=== PATIENT | male | born 1940 | race Two or more races ===

== ENCOUNTER 2016-09-07 09:04 | Emergency (ER) | payer OTHER ==
[~2016-09-07] VITALS: Ht 170.2 cm; Wt 88.5 kg
[2016-09-07 09:22] LABS: BASOPHILS % (AUTO) 0.3 % (0.0-2.0); DIFF TOTAL % 100 %; EOSINOPHILS % (AUTO) 0.1 % (0.0-6.0); HEMATOCRIT 31 % (39-51); HEMOGLOBIN 10.4 g/dL (13.5-17.5); LYMPHOCYTES # (AUTO) 1.8 /CMM (0.8-4.8); LYMPHOCYTES % (AUTO) 15.9 % (20.0-44.0); MEAN CORPUSCULAR HEMOGLOBIN 31 PG (26.0-33.0); MEAN CORPUSCULAR HGB CONC 34 g/dl (31.0-36.0); MEAN CORPUSCULAR VOLUME 93 fL (80-96); MONOCYTES % (AUTO) 9.1 % (2.0-12.0); NEUTROPHILS # (AUTO) 8.3 /CMM (1.8-8.9); NEUTROPHILS % (AUTO) 74.6 % (43.0-81.0); PLATELET COUNT (AUTO) 229 /CMM (150-450); RED BLOOD CELL COUNT(AUTO) 3.34 MIL/uL (4.5-6.0); WHITE BLOOD COUNT (AUTO) 11.2 K/uL (4.3-11.0)
[2016-09-07 09:37] LABS: ALANINE AMINOTRANSFERASE 14 U/L (12-78); ALBUMIN 2.6 g/dL (3.4-5.0); ANION GAP 18 (5-14); ASPARTATE AMINOTRANSFERASE 22 U/L (15-37); BILIRUBIN,DIRECT 0.2 mg/dL (0.0-0.2); BILIRUBIN,TOTAL 0.7 mg/dL (0.2-1.0); CALCIUM, SERUM 8.7 mg/dL (8.5-10.1); CARBON DIOXIDE 19 mmol/L (21-32); CHLORIDE 104 mmol/L (98-107); GLUCOSE 107 mg/dL (74-106); INDIRECT BILIRUBIN 0.5 mg/dL (0.0-1.1); POTASSIUM 4.9 mmol/L (3.5-5.1); SODIUM SERUM 136 mmol/L (136-145); TOTAL PROTEIN, SERUM 6.7 g/dL (6.4-8.2); UREA NITROGEN, BLOOD 71 mg/dL (7-18)
[2016-09-07 09:39] LABS: TROPONIN I < 0.017 ng/mL (0.00-0.056)
[2016-09-07 10:10] LABS: INR 1.04 (0.87-1.13); PROTHROMBIN TIME 11.2 SECS (9.5-12.7)
[2016-09-07] MEDS ORDERED: MORPHINE SULFATE INJ 4 MG/ML DISP.SYRIN ONE ×2 (11:07→15:42)
[2016-09-07] MEDS ORDERED: ONDANSETRON HCL/PF 4 MG/2 ML VIAL ONE ×2 (11:08→15:42)
[2016-09-07] MEDS ORDERED: ONDANSETRON HCL/PF - ER 4 MG/2 ML VIAL IV ONE (11:30)
[2016-09-07] MEDS ORDERED: MORPHINE SULFATE INJ 2 MG/ML DISP.SYRIN IV ONE ×2 (11:30→16:00)
[2016-09-07] MEDS ORDERED: HEPARIN INFUSION/D5W 500 ML IV ONE (14:00)
[2016-09-07] MEDS ORDERED: HEPARIN SODIUM, PORCINE 5000 UNITS/1 ML VIAL IV ONE (14:00)
[2016-09-07 14:07] LABS: BASOPHILS # (AUTO) 0.1 /CMM (0.0-0.2); BASOPHILS % (AUTO) 1.1 % (0.0-2.0); DIFF TOTAL % 100 %; EOSINOPHILS % (AUTO) 0.2 % (0.0-6.0); HEMATOCRIT 32 % (39-51); HEMOGLOBIN 10.8 g/dL (13.5-17.5); LYMPHOCYTES % (AUTO) 16.6 % (20.0-44.0); MEAN CORPUSCULAR HEMOGLOBIN 32 PG (26.0-33.0); MEAN CORPUSCULAR HGB CONC 34 g/dl (31.0-36.0); MEAN CORPUSCULAR VOLUME 93 fL (80-96); MONOCYTES % (AUTO) 8.2 % (2.0-12.0); NEUTROPHILS % (AUTO) 73.9 % (43.0-81.0); PLATELET COUNT (AUTO) 237 /CMM (150-450); RED BLOOD CELL COUNT(AUTO) 3.45 MIL/uL (4.5-6.0); WHITE BLOOD COUNT (AUTO) 12.1 K/uL (4.3-11.0)
[2016-09-07] MEDS ORDERED: IV SET PRIMARY PUMP SET 1 EA INFUS.SET MC ONE (14:14)
[2016-09-07 14:17] LABS: ANION GAP 13 (5-14); CALCIUM, SERUM 8.8 mg/dL (8.5-10.1); CARBON DIOXIDE 22 mmol/L (21-32); CHLORIDE 104 mmol/L (98-107); CREATININE 2.8 mg/dL (0.6-1.3); GLUCOSE 105 mg/dL (74-106); POTASSIUM 4.9 mmol/L (3.5-5.1); SODIUM SERUM 134 mmol/L (136-145); UREA NITROGEN, BLOOD 72 mg/dL (7-18)
[2016-09-07 14:26] LABS: TROPONIN I < 0.017 ng/mL (0.00-0.056)
[2016-09-07 15:07] VITALS: BP 128/66
[2016-09-07] MEDS ORDERED: SECONDARY IV SET 1 EA INFUS.SET MC ONE (15:30)
[2016-09-07] MEDS ORDERED: ONDANSETRON HCL/PF 4 MG/2 ML VIAL IVP ONE (16:00)
== END 2016-09-07 15:51 | disposition short-term general hospital (02) ==
LOC: ER 09:06
DX: I26.99 Other pulmonary embolism without acute cor pulmonale (principal); I10 Essential (primary) hypertension; N40.0 Benign prostatic hyperplasia without lower urinary tract symptoms; Z98.890 Other specified postprocedural states
CPT/HCPCS: 36415; 71010; 78582; 80048 ×2; 80076; 84484 ×2; 85025 ×2; 85730; 93005 ×2; 96365; 96375; 96376; 99291; A4606; A9540; A9567; J1644 ×2; J2270 ×2; J2405 ×2; Z7610

== ENCOUNTER 2022-06-27 16:23 | Emergency (ER) | payer OTHER ==
[~2022-06-27] VITALS: Ht 167.6 cm; Wt 90.7 kg
--- NOTE | 2022-06-27 16:30 | NUR ---
BIBA RA86 "From Home Slip/fall Left Hip Pain NO LOC". PLACED ON BED, AAOX4, BREATHING EVEN AND UNLABORED SATURATING AT 96%.
--- NOTE | 2022-06-27 17:00 | NUR ---
X-RAY TECH AT BEDSIDE
--- NOTE | 2022-06-27 17:29 | NUR ---
CALLED [facility] [phone]. SPOKE WITH PHIL. [facility] DE SANTIAG[facility] WILL CALL US BACK FOR A PEER TO PEER.
[2022-06-27] MEDS ORDERED: MORPHINE SULFATE INJ 2 MG/ML DISP.SYRIN IV ONE ×2 (17:30→21:00)
[2022-06-27] MEDS ORDERED: MORPHINE SULFATE INJ 4 MG/ML DISP.SYRIN ONE ×2 (17:30→20:59)
--- NOTE | 2022-06-27 17:35 | NUR ---
BLOOD DRAWN AND SENT TO LAB
[2022-06-27 17:39] LABS: BASOPHILS % (AUTO) 0.3 % (0.0-2.0); EOSINOPHILS % (AUTO) 0.7 % (0.0-6.0); HEMATOCRIT 36 % (39-51); HEMOGLOBIN 11.9 g/dL (13.5-17.5); LYMPHOCYTES % (AUTO) 16.6 % (20.0-44.0); MEAN CORPUSCULAR HGB CONC 33 g/dl (31.0-36.0); MEAN CORPUSCULAR VOLUME 95 fL (80-96); MONOCYTES # (AUTO) 0.7 K/uL (0.1-1.30); MONOCYTES % (AUTO) 5.8 % (2.0-12.0); NEUTROPHILS % (AUTO) 76.6 % (43.0-81.0); PLATELET COUNT (AUTO) 227 K/uL (150-450); RED BLOOD CELL COUNT(AUTO) 3.78 MIL/uL (4.5-6.0); WHITE BLOOD COUNT (AUTO) 11.8 K/uL (4.3-11.0)
[2022-06-27] MEDS ORDERED: DABI110C PO (17:41)
[2022-06-27] MEDS ORDERED: TAMS-12 PO (17:41)
[2022-06-27] MEDS ORDERED: FINA5TAB11 PO (17:41)
[2022-06-27] MEDS ORDERED: LOSA50TA39 PO (17:41)
[2022-06-27] MEDS ORDERED: HYDR-4077 PO (17:41)
--- NOTE | 2022-06-27 17:47 | NUR ---
CALLED [facility] [phone]. SPOKE TO TIM AND ASKED FOR SNAPSHOT TO BE FAXED.
[2022-06-27 17:49] LABS: CALCIUM, SERUM 9.3 mg/dL (8.5-10.1); CARBON DIOXIDE 23 mmol/L (21-32); CHLORIDE 108 mmol/L (98-107); CREATININE 2.2 mg/dL (0.6-1.3); GLUCOSE 115 mg/dL (74-106); POTASSIUM 4.6 mmol/L (3.5-5.1); SODIUM SERUM 140 mmol/L (136-145); UREA NITROGEN, BLOOD 42 mg/dL (7-18)
--- NOTE | 2022-06-27 17:52 | NUR ---
DR. RIVERA FROM [facility] SPEAKING WITH DR. HAMMER.
--- NOTE | 2022-06-27 18:12 | NUR ---
COVID SWAB COLLECTED SENT TO LAB.
[2022-06-27 18:47] VITALS: BP 165/73
--- NOTE | 2022-06-27 19:58 | NUR ---
RECIEVED CALL FOR [facility]. AWAITING CALL BACK FOR TRANSPORT INFO
--- NOTE | 2022-06-27 20:56 | NUR ---
TRANSFER INFO: PT GOING TO [facility] ROOM 3313, ACCEPTED BY KARO ROBINS. RN FOR REPORT [phone], [facility] BLS ETA [phone]
--- NOTE | 2022-06-27 21:14 | NUR ---
REPORT GIVEN TO ZENIA JULES [facility] [phone] FOR IRMA
--- NOTE | 2022-06-27 21:55 | NUR ---
PER [facility] PT ACCEPTED BY DR CHRIS KING
--- NOTE | 2022-06-27 21:57 | NUR ---
PATIENT TAKEN BY [facility] STAFF FOR TRANSFER TO [facility] IN A STABLE AND PAINFREE.
== END 2022-06-27 22:00 | disposition short-term general hospital (02) ==
LOC: ER 16:30
DX: S72.032A Displaced midcervical fracture of left femur, initial encounter for closed fracture (principal); W01.0XXA Fall on same level from slipping, tripping and stumbling without subsequent striking against object, initial encounter; Y92.039 Unspecified place in apartment as the place of occurrence of the external cause; I48.92 Unspecified atrial flutter; Z79.02 Long term (current) use of antithrombotics/antiplatelets; N40.0 Benign prostatic hyperplasia without lower urinary tract symptoms; I10 Essential (primary) hypertension; Z88.6 Allergy status to analgesic agent; Z88.8 Allergy status to other drugs, medicaments and biological substances; Z79.899 Other long term (current) drug therapy; Z20.822 Contact with and (suspected) exposure to COVID-19
CPT/HCPCS: 99285; 96374; 87426; 93005; 96376; 73503; 85025; 80048; 36415; 85730; J2270 ×2; C9803; 73502